=== PATIENT | male | born 1995 | race Caucasian/White ===

== ENCOUNTER 2016-06-28 13:00 | Emergency (ER) | payer BC ==
[~2016-06-28] VITALS: Ht 190.5 cm; Wt 87.7 kg
[2016-06-28 13:07] VITALS: Ht 190.5 cm; Wt 87.7 kg
[2016-06-28] MEDS ORDERED: LIDOCAINE HCL 2% VISC SOLN 20 ML UDC PO STA (13:22)
[2016-06-28] MEDS ORDERED: ALUMINUM/MAGNESIUM SUSP 30 ML UDC ONE (13:35)
[2016-06-28] MEDS ORDERED: LIDOCAINE HCL 2% VISC SOLN 20 ML UDC ONE (13:35)
--- NOTE | 2016-06-28 13:57 | DIAGNOSTIC IMAGING REPORT ---
CHEST 2 VIEWS ROUTINE CLINICAL HISTORY: fever, myalgia COMPARISON STUDY: No previous studies for comparison. FINDINGS: The cardiac and mediastinal contours are normal. There is no evidence of focal pulmonary consolidation. There is no evidence of failure. No pleural effusions are visualized.[ IMPRESSION: No active disease in the chest. Electronically signed by: Tino Cordova M.D. 06/28/2016 1:55 PM Dictated Date/Time: 06/28/2016 1:55 PM
[2016-06-28 14:02] LABS: BASO % 0.4 %; BASO ABS # 0.02 K/uL (0-0.2); COMPLETE YES; IG% 0.2 %; LYMPH ABS # 0.71 K/uL (1.2-3.4); MEAN CELL VOLUME 84.2 fL (80-100); MEAN CORPUSCULAR HEMOGLOBIN 30.7 pg (25-34); MEAN CORPUSCULAR HGB CONC 36.5 g/dl (32-36); MEAN PLATELET VOLUME 10.3 fL (7.4-10.4); MONO % 13.3 %; NEUT % 70.1 %; PLATELET COUNT 154 K/uL (130-400); RED BLOOD COUNT 4.75 M/uL (4.7-6.1); WHITE BLOOD COUNT 4.45 K/uL (4.8-10.8)
[2016-06-28 14:14] LABS: BUN/CREATININE RATIO 10.9 (10-20); CALCIUM 9.4 mg/dl (8.5-10.1); CREATININE 1.2 mg/dl (0.60-1.40); POTASSIUM 3.9 mmol/L (3.5-5.1)
[2016-06-28] MEDS ORDERED: ACETAMINOPHEN 325 MG TAB PO STA (14:32)
[2016-06-28 14:53] VITALS: BP 136/94; PULSE 103; TEMP 37.3; O2SAT 99
--- NOTE | 2016-07-06 20:47 | EMERGENCY ROOM VISIT NOTE ---
ED Visit Note First contact with patient: 13:21 CHIEF COMPLAINT: Fever, congestion, aches, lethargy and chills HISTORY OF PRESENT ILLNESS: This 20-year-old white male patient has had fever, chills, diffuse body aches, low energy, and head congestion that began this morning. He states there were some minor symptoms yesterday. They deny any nausea, vomiting, diarrhea, shortness of breath, or chest pain. No ear pain, dizziness, or lightheadedness. No sore throat. No difficulty with speech or gait, no confusion or incoordination. He states there was a headache earlier, but it is mostly resolved now. Pain is 8/10. No treatment yet. No other complaints. No known ill contacts. A male friend accompanies him today. REVIEW OF SYSTEM: HEENT: No dizziness, visual problems, hearing loss, or tinnitus. There is no difficulty swallowing and no oral lesions are present. LYMPH: No adenopathy. PULMONARY: No shortness of breath, sputum production or hemoptysis. CARDIOVASCULAR: No chest pain, palpitations, shortness of breath or peripheral edema. GASTROINTESTINAL: No diarrhea, constipation, nausea, vomiting, or abdominal pain. GENITOURINARY: No dysuria, frequency, urgency or nocturia. NEUROLOGIC: No weakness, muscle tenderness, epilepsy or history of neurological problems. MUSCULOSKELETAL: No history of joint tenderness/swelling. No history of arthritis or arthralgias. SKIN: No rashes or lesions. ENDOCRINE: No history of diabetes, thyroid disorders, or abnormal hair growth. PMH: Supplemental sheet was reviewed. Previous surgeries: [place] tooth extraction Medical history: Benign Current medications: None Allergies: NKDA Family history: Noncontributory. Parents are living. SOCIAL HISTORY: Patient lives with roommates. [employer] student. No tobacco use, occasional EtOH use. PHYSICAL EXAM: Vital Signs: Temperature 39.3 pulse 119 BP 127/75 respirations 20. Gen: Well-developed, well-nourished, young white male, in no acute distress. He is sitting on the bed. Alert and oriented. Skin: Warm and dry with good turgor. No rashes or lesions. No ecchymosis or erythema. The patient is not diaphoretic. No abrasions. HEAD: Atraumatic, without temporal or scalp tenderness. EYES: PERRL, EOMI, no discharge or injection. Nares: Clear nasal drainage is present. No epistaxis. THROAT: Pharynx without injection , exudate or tonsillar hypertrophy. Airway patent. Lymphatics: Anterior and posterior chains are palpated without enlargement or tenderness. HEART: Regular rate and rhythm without murmurs, ectopy, gallops, or rubs. Peripheral pulses are 2+. LUNGS: Clear to auscultation and breath sounds equal, no wheezes, rales , or rhonchi. Good air movement. Patient is able to take a deep breath. ABDOMEN : Was inspected, auscultated, and palpated. Soft, nontender, no hepatosplenomegaly, or masses. No rebound. No CVA tenderness. Neurologic: Gross sensation is intact across the upper and lower extremities by soft touch. Musculoskeletal: Patient has no discomfort with palpation over the cervical spine. Full range of motion of the neck. EMERGENCY DEPARTMENT COURSE: CBC obtained today is unremarkable. No elevation in white count. PRP obtained today is also unremarkable. Influenza swab is negative. [place] screen is also negative. Chest x-ray obtained today was also unremarkable. DIAGNOSIS: Fever of unknown origin. Influenza-like symptoms. DISCHARGE INSTRUCTIONS: Patient was educated regarding today's findings. Conservative care measures were discussed. IV was established. Labs were obtained. Chest x-ray obtained today was unremarkable. Patient was given Tylenol in the department to assist with his temperature. Maintain hydration. Rest as able. Ibuprofen, 600 mg every 6 hours for fever or pain. Add Tylenol every 6 hours for breakthrough discomfort or fever. Delsym syrup 2 teaspoons b.i.d. as needed for any cough. See [facility] in a few days if the symptoms persist. They may also return to the ED if persisting vomiting develops, or if they are unable to keep the fever below 102 at home. Avoid classes until they have been afebrile for 24 hours. Patient was reassured that he does not have specifically influenza or mono at this time. I do not suspect meningitis at this time either. Current/Historical Medications No Active Prescriptions or Reported Meds Allergies Coded Allergies: No Known Allergies (Unverified , 06/28/16) Vital Signs Date Time Temp Pulse Resp B/P Pulse Ox O2 Delivery O2 Flow Rate FiO2 06/28/16 14:53 37.3 103 18 136/94 99 Room Air 06/28/16 13:07 39.3 119 20 127/75 95 Room Air Laboratory Results 06/28/16 13:35 Red Blood Count 4.75, Mean Corpuscular Volume 84.2, Mean Corpuscular Hemoglobin 30.7, Mean Corpuscular Hemoglobin Concent 36.5, Mean Platelet Volume 10.3, Neutrophils (%) (Auto) 70.1, Lymphocytes (%) (Auto) 16.0, Monocytes (%) (Auto) 13.3, Eosinophils (%) (Auto) 0.0, Basophils (%) (Auto) 0.4, Neutrophils # (Auto ) 3.12, Lymphocytes # (Auto) 0.71, Monocytes # (Auto) 0.59, Eosinophils # (Auto ) 0.00, Basophils # (Auto) 0.02 06/28/16 13:35 Test 06/28/16 13:00 06/28/16 13:35 Influenza Type A Antigen Neg for Influ A (NEG) Influenza Type B Antigen Neg for Influ B (NEG) White Blood Count 4.45 K/uL (4.8-10.8) Red Blood Count 4.75 M/uL (4.7-6.1) Hemoglobin 14.6 g/dL (14.0-18.0) Hematocrit 40.0 % (42-52) Mean Corpuscular Volume 84.2 fL (80-100) Mean Corpuscular Hemoglobin 30.7 pg (25-34) Mean Corpuscular Hemoglobin Concent 36.5 g/dl (32-36) Platelet Count 154 K/uL (130-400) Mean Platelet Volume 10.3 fL (7.4-10.4) Neutrophils (%) (Auto) 70.1 % Lymphocytes (%) (Auto) 16.0 % Monocytes (%) (Auto) 13.3 % Eosinophils (%) (Auto) 0.0 % Basophils (%) (Auto) 0.4 % Neutrophils # (Auto) 3.12 K/uL (1.4-6.5) Lymphocytes # (Auto) 0.71 K/uL (1.2-3.4) Monocytes # (Auto) 0.59 K/uL (0.11-0.59) Eosinophils # (Auto) 0.00 K/uL (0-0.5) Basophils # (Auto) 0.02 K/uL (0-0.2) RDW Standard Deviation 37.0 fL (36.4-46.3) RDW Coefficient of Variation 12.0 % (11.5-14.5) Immature Granulocyte % (Auto) 0.2 % Immature Granulocyte # (Auto) 0.01 K/uL (0.00-0.02) Anion Gap 9.0 mmol/L (3-11) Est Creatinine Clear Calc Drug Dose 117.4 ml/min Estimated GFR () 100.3 Estimated GFR (Non- 86.5 BUN/Creatinine Ratio 10.9 (10-20) Calcium Level 9.4 mg/dl (8.5-10.1) Monoscreen NEG (NEG) Medications Administered Medications (Trade) Dose Ordered Sig/[place]isselle Route Start Time Stop Time Status Last Admin Dose Admin Lidocaine HCl (Viscous Lidocaine 2% Soln) 10 ml NOW STAT PO 06/28/16 13:22 06/28/16 13:25 DC 06/28/16 13:22 10 ML Al Hydroxide/Mg Hydroxide (Maalox Susp) 30 ml STK-MED ONCE .ROUTE 06/28/16 13:35 06/28/16 13:36 DC 06/28/16 13:35 30 ML Lidocaine HCl (Viscous Lidocaine 2% Soln) 20 ml STK-MED ONCE .ROUTE 06/28/16 13:35 06/28/16 13:36 DC 06/28/16 13:35 20 ML Acetaminophen (Tylenol Tab) 650 mg NOW STAT PO 06/28/16 14:32 06/28/16 14:33 DC 06/28/16 14:53 650 MG Departure Information Impression Primary Impression: Fever, unknown origin Additional Impression: Influenza-like symptoms Dispostion Home / Self-Care Condition GOOD Prescriptions No Active Prescriptions or Reported Meds Forms HOME CARE DOCUMENTATION FORM, MOTRIN USE, TYLENOL USE, IMPORTANT VISIT INFORMATION Patient Instructions [place] Additional Instructions Maintain hydration Tylenol 650 mg and Motrin 6 mg every 6 hours as needed for discomfort/fever control Follow-up with [facility] or return to the ED for any acute changes Rest as needed Avoid close contact with others until symptoms have resolved Problem Qualifiers
== END 2016-06-28 15:37 | disposition home or self-care (01) ==
LOC: C.EDB 13:00
DX: R50.9 Fever, unspecified (principal); R09.81 Nasal congestion; R51 Headache